=== PATIENT | female | born 1990 | race African-American/Black ===

== ENCOUNTER 2017-02-14 10:45 | Emergency (ER) | payer OTHER ==
[~2017-02-14] VITALS: Ht 170.2 cm; Wt 56.7 kg
[~2017-02-14 10:45] MED LIST: DOCU50CA6 PO; HYDR-971 PO; NAPR500T PO; NAPR500T3 PO
[2017-02-14 11:07] VITALS: BP 113/80
[2017-02-14 11:56] LABS: BILIRUBIN,URINE NEGATIVE (NEG); GLUCOSE,URINE NEGATIVE (NEG); NITRITE,URINE NEGATIVE (NEG); PROTEIN,URINE NEGATIVE (NEG-TRACE)
[2017-02-14 12:03] LABS: BACTERIA,URINE MANY /HPF (0-FEW); RBC,URINE 0 /HPF (0-2); SQUAMOUS EPITHELIAL CELL,UR MANY /LPF
[2017-02-14] MEDS ORDERED: METR500T PO (12:24)
[2017-02-14] MEDS ORDERED: NITR100C62 PO (12:24)
--- NOTE | 2017-02-14 12:26 | PHYS DOC ---
Past Medical History Past Medical History: No Pertinent History Past Surgical History: No Surgical History Alcohol Use: Occasionally Drug Use: None Adult General Chief Complaint Chief Complaint: VAGINAL PROBLEM HPI HPI Patient is a 26 year old presents emergency department stating that she's been having vaginal discharge on and off since August. She states that she started the Depakote shot in August and had some vaginal bleeding for a few months straight. She states that she followed up with her [employer] was placed on control. She states that now she is having irregular menstrual cycles. She states that she has not been sexually active since the of her child last June. She states at that time she had tested positive for chlamydia. She states that they had given her the medications to treat chlamydia although she vomited it up. She states that she did not seek any further treatment after vomiting the medication. Patient states that she is having yellow vaginal discharge is unable to say if it has a odor. She denies any abdominal pain or discomfort she denies any urinary frequency urgency or pain with urination. Review of Systems Review of Systems Constitutional: Denies fever or chills [] Eyes: Denies change in visual acuity, redness, or eye pain [] HENT: Denies nasal congestion or sore throat [] Respiratory: Denies cough or shortness of breath [] Cardiovascular: No additional information not addressed in HPI [] GI: Denies abdominal pain, nausea, vomiting, bloody stools or diarrhea [] : Denies dysuria or hematuria. C/o vaginal discharge Musculoskeletal: Denies back pain or joint pain [] Integument: Denies rash or skin lesions [] Neurologic: Denies headache, focal weakness or sensory changes [] Current Medications Current Medications Current Medications Medications (Trade) Dose Ordered Sig/Jose Start Time Stop Time Status Last Admin Dose Admin Azithromycin (Zithromax) 1,000 mg 1X ONCE 02/14/17 12:15 02/14/17 12:16 UNV Ceftriaxone Sodium (Rocephin Im) 250 mg 1X ONCE 02/14/17 12:15 02/14/17 12:16 UNV Metronidazole (Flagyl) 2,000 mg 1X ONCE 02/14/17 12:15 02/14/17 12:16 UNV Ondansetron HCl (Zofran Odt) 4 mg 1X ONCE 02/14/17 12:15 02/14/17 12:16 UNV Allergies Allergies Allergies Coded Allergies Type Severity Reaction Last Updated Verified No Known Drug Allergies 10/12/13 No Physical Exam Physical Exam Constitutional: Well developed, well nourished, no acute distress, non-toxic appearance. [] HENT: Normocephalic, atraumatic, bilateral external ears normal, oropharynx moist, no oral exudates, nose normal. [] Eyes: PERRLA, EOMI, conjunctiva normal, no discharge. [] Neck: Normal range of motion, no tenderness, supple, no stridor. [] Cardiovascular:Heart rate regular rhythm, no murmur [] Lungs & Thorax: Bilateral breath sounds clear to auscultation [] Abdomen: Bowel sounds normal, soft, no tenderness, no masses, no pulsatile masses. [] Skin: Warm, dry, no erythema, no rash. [] Back: No tenderness Extremities: No tenderness, no cyanosis, no clubbing, ROM intact, no edema. [] Neurologic: Alert and oriented X 3, normal motor function, normal sensory function, no focal deficits noted. [] Psychologic: Affect normal, judgement normal, mood normal. [] Vaginal exam completed speculum exam with white to yellow discharge noted manual exam no CMT no adnexal tenderness noted. Current Patient Data Vital Signs Vital Signs Date Time Temp Pulse Resp B/P Pulse Ox O2 Delivery O2 Flow Rate FiO2 02/14/17 11:07 97.9 60 20 113/80 100 Room Air 97.9 Lab Values Laboratory Tests Test 02/14/17 10:45 02/14/17 11:39 POC Urine HCG, Qualitative Hcg negative (Negative) Urine Collection Type Void Urine Color Yellow Urine Clarity Clear Urine pH 8.0 Urine Specific [place] 1.025 Urine Protein Negativemg/dL (NEG-TRACE) Urine Glucose (UA) Negativemg/dL (NEG) Urine Ketones (Stick) Negativemg/dL (NEG) Urine Blood Negative (NEG) Urine Nitrite Negative (NEG) Urine Bilirubin Negative (NEG) Urine Urobilinogen Dipstick 1.0mg/dL (0.2 mg/dL) Urine Leukocyte Esterase Moderate (NEG) Urine RBC 0/HPF (0-2) Urine WBC 11-20/HPF (0-4) Urine Squamous Epithelial Cells Many/LPF Urine Bacteria Many/HPF (0-FEW) Urine Mucus Marked/LPF Microbiology 02/14/17 Wet Prep - Final, Complete EKG EKG [] Radiology/Procedures Radiology/Procedures [] Course & Med Decision Making Course & Med Decision Making Pertinent Labs and Imaging studies reviewed. (See chart for details) Since the patient states that she had vomited up her medications to treat chlamydia patient will be retreated today for sexually transmitted infections she'll be provided with a Rocephin injection Flagyl and Zithromax. Patient will also be provided with Flagyl at discharge since the wet prep was positive for bacterial vaginosis. Patient was also noted to have urinary tract infection she' ll be placed on Macrobid. Recommended patient to follow up with her primary care physician in the next 5-7 days. Signs symptoms to return back to emergency department been provided. Also recommended patient to drink plenty of fluids such as water and cranberry juice. Avoid cranberry juice cocktail, carbonated beverages, citrus fruits and alcohol sees her considered irritants to the bladder. Patient will be discharged home in stable condition. Signs and symptoms to return back to emergency department was provided. [] Dragon Disclaimer Dragon Disclaimer This electronic medical record was generated, in whole or in part, using a voice recognition dictation system. Departure Departure Impression: Primary Impression: Bacterial vaginosis Additional Impression: Urinary tract infection Disposition: HOME, SELF-CARE Condition: STABLE Referrals: NO PCP (PCP) Patient Instructions: Bacterial Vaginosis, [id number], Urinary Tract Infection, [id number] Additional Instructions: Activity as tolerated. Medication as prescribed. Drink plenty of fluids such as water and cranberry juice. Avoid cranberry juice cocktail carbonate beverages citrus fruits alcohol and caffeine as these are all considered irritants to the bladder. Follow-up to primary care physician next 5-7 days. Return back to emergency prior signs symptoms of become worse. Scripts Metronidazole (Flagyl)500 Mg Tablet1 Tab PO BID #14 TAB Prov:CARO MARIN APRN 02/14/17 Nitrofurantoin Monohyd/M-Cryst (Macrobid 100 Mg Capsule)100 Mg Capsule1 Cap PO BID #14 CAP Prov:CARO MARIN APRN 02/14/17 Problem Qualifiers CARO MARIN APRN Feb 14, 2017 12:26
[2017-02-14] MEDS ORDERED: ONDANSETRON ODT 4 MG TAB.RAPDIS. PO ONE (13:00)
[2017-02-14] MEDS ORDERED: CEFTRIAXONE IM 250 MG VIAL. IM ONE (13:00)
[2017-02-14] MEDS ORDERED: METRONIDAZOLE 500 MG TABLET. PO ONE (13:00)
[2017-02-14] MEDS ORDERED: AZITHROMYCIN 250 MG TABLET. PO ONE (13:00)
== END 2017-02-14 12:57 | disposition home or self-care (01) ==
LOC: ER 10:45
DX: N76.0 Acute vaginitis (principal); N39.0 Urinary tract infection, site not specified
CPT/HCPCS: 81001; 81025; 87491; 87591; 96372; 99284; J0696; Q0111; Q0144; Q0162

== ENCOUNTER 2018-11-08 18:46 | Emergency (ER) | payer OTHER ==
[~2018-11-08] VITALS: Ht 172.7 cm; Wt 56.7 kg
[~2018-11-08 18:46] MED LIST changes: +HYDR-3164 PO; -HYDR-971 PO; +METR500T PO; +NAPR-514 PO; +NAPR-683 PO; -NAPR500T PO; -NAPR500T3 PO; +NITR100C62 PO
[2018-11-08 19:41] VITALS: BP 113/80
[2018-11-08 19:48] LABS: BILIRUBIN,URINE NEGATIVE (NEG); CLARITY,URINE CLEAR; COLOR,URINE YELLOW; NITRITE,URINE NEGATIVE (NEG); PH,URINE 5.5; PROTEIN,URINE NEGATIVE (NEG-TRACE)
[2018-11-08 19:53] LABS: U PREG PATIENT NEGATIVE (NEG)
[2018-11-08 19:56] LABS: BACTERIA,URINE FEW /HPF (0-FEW); RBC,URINE 0 /HPF (0-2); SQUAMOUS EPITHELIAL CELL,UR MOD /LPF
[2018-11-08] MEDS ORDERED: METR-84 PO (19:57)
--- NOTE | 2018-11-08 19:57 | PHYS DOC ---
Past Medical History Past Medical History: No Pertinent History Past Surgical History: No Surgical History Alcohol Use: None Drug Use: None Adult General Chief Complaint Chief Complaint: VAGINAL PROBLEM HPI HPI Patient is a 27 year old female who presents with white vaginal discharge for it before and right after her cycles for the last 2 and half weeks. She denies odor, vaginal itching, vaginal lesions, dysuria. His white in color. Patient states she is not sexually active and has not been sexually active in 2 years. She is no known drug allergies. Review of Systems Review of Systems Constitutional: Denies fever or chills [] Eyes: Denies change in visual acuity, redness, or eye pain [] HENT: Denies nasal congestion or sore throat [] Respiratory: Denies cough or shortness of breath [] Cardiovascular: No additional information not addressed in HPI [] GI: Denies abdominal pain, nausea, vomiting, bloody stools or diarrhea [] : Denies dysuria or hematuria [] Musculoskeletal: Denies back pain or joint pain [] Integument: Denies rash or skin lesions [] Neurologic: Denies headache, focal weakness or sensory changes [] Endocrine: Denies polyuria or polydipsia [] All other systems were reviewed and found to be within normal limits, except as documented in this note. Allergies Allergies Allergies Coded Allergies Type Severity Reaction Last Updated Verified No Known Drug Allergies 10/12/13 No Physical Exam Physical Exam Constitutional: Well developed, well nourished, no acute distress, non-toxic appearance. [] HENT: Normocephalic, atraumatic, bilateral external ears normal, oropharynx moist, no oral exudates, nose normal. [] Eyes: PERRLA, EOMI, conjunctiva normal, no discharge. [] Neck: Normal range of motion, no tenderness, supple, no stridor. [] Cardiovascular:Heart rate regular rhythm, no murmur [] Lungs & Thorax: Bilateral breath sounds clear to auscultation [] Abdomen: Bowel sounds normal, soft, no tenderness, no masses, no pulsatile masses. [] Skin: Warm, dry, no erythema, no rash. [] Back: No tenderness, no CVA tenderness. [] Extremities: No tenderness, no cyanosis, no clubbing, ROM intact, no edema. [] Neurologic: Alert and oriented X 3, normal motor function, normal sensory function, no focal deficits noted. [] Psychologic: Affect normal, judgement normal, mood normal. [] Current Patient Data Vital Signs Vital Signs Date Time Temp Pulse Resp B/P (MAP) Pulse Ox O2 Delivery O2 Flow Rate FiO2 11/08/18 19:41 98.6 90 16 113/80 (91) 100 Room Air 98.6 Lab Values Microbiology 11/08/18 Wet Prep - Final, Complete EKG EKG [] Radiology/Procedures Radiology/Procedures [] Course & Med Decision Making Course & Med Decision Making Patient is a 27 year old female who presents with white vaginal discharge for it before and right after her cycles for the last 2 and half weeks. She denies odor, vaginal itching, vaginal lesions, dysuria. His white in color. Patient states she is not sexually active and has not been sexually active in 2 years. She is no known drug allergies. Alert and oriented. Denies abdominal pain, nausea, vomiting, diarrhea, fever, dysuria. Abdomen is soft and nontender there are no masses. I swabbed the patient's with a wet mount and sent off chlamydia gonorrhea. See pelvic exam. Pelvic Exam: [employer] present Abdomen: Nontender External Genitalia: Normal Skin Speculum: Normal vaginal mucosa, white cervical discharge Bimanual: No adnexal masses or tenderness, No CMT Wet mount shows bacterial vaginosis. She'll be treated with antibiotic for bacterial vaginosis. She'll follow up with her primary care doctor or instrumentation fitter if needed. She refuses any treatment for STDs at this time. Dragon Disclaimer Dragon Disclaimer This electronic medical record was generated, in whole or in part, using a voice recognition dictation system. Departure Departure Impression: Primary Impression: Bacterial vaginosis Disposition: 01 HOME, SELF-CARE Condition: STABLE Referrals: NO PCP (PCP) MARISABEL VEGA Jr, MD Patient Instructions: Bacterial Vaginosis Additional Instructions: Take medications as prescribed. If vaginal discharge continues, I have referred your to a instrumentation fitter. Scripts Metronidazole (METRONIDAZOLE) 500 Mg Tablet 1 TAB PO BID, #14 TAB Prov: CARO GUADARRAMA APRN 11/08/18 CARO GUADARRAMA MAPPER Nov 08, 2018 19:57
== END 2018-11-08 20:11 | disposition home or self-care (01) ==
LOC: ER 18:46
DX: N76.0 Acute vaginitis (principal); B96.89 Other specified bacterial agents as the cause of diseases classified elsewhere
CPT/HCPCS: 81001; 81025; 99283; Q0111

== ENCOUNTER 2019-01-31 12:12 | Emergency (ER) | payer OTHER ==
[~2019-01-31] VITALS: Ht 175.3 cm; Wt 56.7 kg
[~2019-01-31 12:12] MED LIST changes: +METR-34 PO
[2019-01-31 13:00] LABS: BILIRUBIN,URINE NEGATIVE (NEG); CLARITY,URINE CLOUDY; COLOR,URINE YELLOW; NITRITE,URINE NEGATIVE (NEG); PH,URINE 6.5; PROTEIN,URINE NEGATIVE (NEG-TRACE)
[2019-01-31 13:10] LABS: BACTERIA,URINE FEW /HPF (0-FEW); RBC,URINE OCC /HPF (0-2); SQUAMOUS EPITHELIAL CELL,UR MOD /LPF; WBC,URINE OCC /HPF (0-4)
[2019-01-31] MEDS ORDERED: IV NORMAL SALINE 1000ML BAG 1,000 ML IV ONE (13:15)
[2019-01-31] MEDS ORDERED: ACETAMINOPHEN 325 MG TABLET. PO ONE (13:15)
[2019-01-31 13:40] LABS: BASO % 0 % (0-3); EOS # 0.1 x10^3/uL (0.0-0.7); EOS % 2 % (0-3); HEMATOCRIT 38.6 % (36.0-47.0); HEMOGLOBIN 12.5 g/dL (12.0-15.5); LYMPH # 1.3 x10^3/uL (1.0-4.8); LYMPH % 24 % (24-48); MEAN CORPUSCULAR HEMOGLOBIN 26 pg (25-35); MEAN CORPUSCULAR HGB CONC 32 g/dL (31-37); MEAN CORPUSCULAR VOLUME 80 fL (79-100); MONO # 0.4 x10^3/uL (0.0-1.1); MONO % 8 % (0-9); NEUT # 3.7 x10^3uL (1.8-7.7); NEUT % 67 % (31-73); PLATELET COUNT 249 x10^3/uL (140-400); RED CELL DISTRIBUTION WIDTH 15.8 % (11.5-14.5); WHITE BLOOD COUNT 5.5 x10^3/uL (4.0-11.0)
--- NOTE | 2019-01-31 13:43 | PHYS DOC ---
Past Medical History Past Medical History: No Pertinent History (DAVID RAO APRN) Past Surgical History: No Surgical History (DAVID RAO APRN) Alcohol Use: None Drug Use: None (DAVID RAO APRN) Adult General Chief Complaint Chief Complaint: MULTIPLE COMPLAINTS HPI HPI 28-year-old female presents to ER with complaints of diffuse headache which been intermittent for the past week. She denies taking any medications for the pain. She reports she has had intermittent nausea denies any vomiting or diarrhea episodes. She denies any other flu or cold-like illness. She denies fever, urinary symptoms, or dizziness. She denies eye pain/vision changes. She reports LMP was beginning of December and it is uncommon for her to be late. She denies control or condom use and has been sexually active. She denies vaginal d/c or bleeding. She reports she had upper abd pain at work earlier this week when lifting a box at work; otherwise denies any ongoing abd pain. She reports her appetite has been slightly down but she did eat just [employer] to ER. (DAVID RAO APRN) Review of Systems Review of Systems Constitutional: Denies fever or chills [] Eyes: Denies change in visual acuity, redness, or eye pain [] HENT: Denies nasal congestion or sore throat [] Respiratory: Denies cough or shortness of breath [] Cardiovascular: No additional information not addressed in HPI [] GI: Denies vomiting, bloody stools or diarrhea. Reports intermittent nausea. Reports had upper abd tightness at work when lifting a box earlier this week with pain subsiding after lifting. Denies any abd pain/cramping in past couple of days. : Denies dysuria or hematuria [] Musculoskeletal: Denies back pain or joint pain [] Integument: Denies rash, swelling or skin lesions [] Neurologic: Denies focal weakness or sensory changes. Reports diffuse VALDES denying photosensitivity or dizziness Endocrine: Denies polyuria or polydipsia [] All other systems were reviewed and found to be within normal limits, except as documented in this note. (DAVID RAO APRN) Current Medications Current Medications Current Medications Medications (Trade) Dose Ordered Sig/Jose Start Time Stop Time Status Last Admin Dose Admin Acetaminophen (Tylenol) 650 mg 1X ONCE 01/31/19 13:15 01/31/19 13:16 DC Sodium Chloride 1,000 ml @ 1,000 mls/hr 1X ONCE 01/31/19 13:15 01/31/19 14:14 DC 01/31/19 13:33 1,000 MLS/HR (MOOKIE SANTOS MD) Allergies Allergies Allergies Coded Allergies Type Severity Reaction Last Updated Verified No Known Drug Allergies 10/12/13 No (MOOKIE SANTOS MD) Physical Exam Physical Exam Constitutional: Well developed, well nourished, no acute distress, non-toxic appearance. [] HENT: Normocephalic, atraumatic, bilateral ears normal, oropharynx moist, no oral exudates, nose normal. [] Eyes: 3mm PERRLA, EOMI- no pain with eye movement, no nystagmus, conjunctiva normal, no discharge. [] Neck: Normal range of motion, no tenderness- no nuchal rigidity, supple, no stridor. [] Cardiovascular: Heart rate regular rhythm, no murmur [] Lungs & Thorax: Bilateral breath sounds clear to auscultation. Resp. equal/ nonlabored Abdomen: Bowel sounds normal, soft, no tenderness or distention, no masses, no pulsatile masses. [] Skin: Warm, dry, no erythema, no rash. [] Back: No tenderness, no CVA tenderness. [] Extremities: No tenderness, no cyanosis, no clubbing, ROM intact, no edema. [] Neurologic: Alert and oriented X 3, normal motor function, normal sensory function, no focal deficits noted. [] Psychologic: Affect normal, judgement normal, mood normal. [] (REFFITT,DAVID Muro APRN) Current Patient Data Vital Signs Vital Signs Date Time Temp Pulse Resp B/P (MAP) Pulse Ox O2 Delivery O2 Flow Rate FiO2 01/31/19 13:48 88 18 107/64 (78) 100 Room Air 01/31/19 12:40 98.0 98.0 (MOOKIE SANTOS MD) Lab Values Laboratory Tests Test 01/31/19 12:30 01/31/19 12:43 01/31/19 13:30 Urine Collection Type Unknown Urine Color Yellow Urine Clarity Cloudy Urine pH 6.5 Urine Specific [place] 1.025 Urine Protein Negative mg/dL (NEG-TRACE) Urine Glucose (UA) Negative mg/dL (NEG) Urine Ketones (Stick) Negative mg/dL (NEG) Urine Blood Negative (NEG) Urine Nitrite Negative (NEG) Urine Bilirubin Negative (NEG) Urine Urobilinogen Dipstick 2.0 mg/dL (0.2 mg/dL) Urine Leukocyte Esterase Small (NEG) Urine RBC Occ /HPF (0-2) Urine WBC Occ /HPF (0-4) Urine Squamous Epithelial Cells Mod /LPF Urine Bacteria Few /HPF (0-FEW) Urine Mucus Mod /LPF POC Urine HCG, Qualitative Hcg positive (Negative) White Blood Count 5.5 x10^3/uL (4.0-11.0) Red Blood Count 4.80 x10^6/uL (3.50-5.40) Hemoglobin 12.5 g/dL (12.0-15.5) Hematocrit 38.6 % (36.0-47.0) Mean Corpuscular Volume 80 fL (79-100) Mean Corpuscular Hemoglobin 26 pg (25-35) Mean Corpuscular Hemoglobin Concent 32 g/dL (31-37) Red Cell Distribution Width 15.8 % (11.5-14.5) H Platelet Count 249 x10^3/uL (140-400) Neutrophils (%) (Auto) 67 % (31-73) Lymphocytes (%) (Auto) 24 % (24-48) Monocytes (%) (Auto) 8 % (0-9) Eosinophils (%) (Auto) 2 % (0-3) Basophils (%) (Auto) 0 % (0-3) Neutrophils # (Auto) 3.7 x10^3uL (1.8-7.7) Lymphocytes # (Auto) 1.3 x10^3/uL (1.0-4.8) Monocytes # (Auto) 0.4 x10^3/uL (0.0-1.1) Eosinophils # (Auto) 0.1 x10^3/uL (0.0-0.7) Basophils # (Auto) 0.0 x10^3/uL (0.0-0.2) Maternal Serum HCG Beta Subunit 661 mIU/mL (0-5) H Sodium Level 141 mmol/L (136-145) Potassium Level 3.6 mmol/L (3.5-5.1) Chloride Level 104 mmol/L (98-107) Carbon Dioxide Level 26 mmol/L (21-32) Anion Gap 11 (6-14) Blood Urea Nitrogen 8 mg/dL (7-20) Creatinine 0.9 mg/dL (0.6-1.0) Estimated GFR (Cockcroft-Gault) 89.6 BUN/Creatinine Ratio 9 (6-20) Glucose Level 84 mg/dL (70-99) Calcium Level 8.8 mg/dL (8.5-10.1) Total Bilirubin 0.4 mg/dL (0.2-1.0) Aspartate Amino Transferase (AST) 16 U/L (15-37) Alanine Aminotransferase (ALT) 18 U/L (14-59) Alkaline Phosphatase 63 U/L (46-116) Total Protein 7.7 g/dL (6.4-8.2) Albumin 3.9 g/dL (3.4-5.0) Albumin/Globulin Ratio 1.0 (1.0-1.7) Lipase 81 U/L (73-393) Laboratory Tests 01/31/19 13:30 Laboratory Tests 01/31/19 13:30 (MOOKIE SANTOS MD) EKG EKG [] (DAVID RAO APRN) Radiology/Procedures Radiology/Procedures [] (DAVID RAO APRN) Course & Med Decision Making Course & Med Decision Making Pertinent Labs and Imaging studies reviewed. (See chart for details) 1430: Patient was evaluated in the ER for multiple vague complaints. She reports she has had intermittent headache for the past week with intermittent nausea. She denied any vomiting or diarrhea episodes. States her abdominal cramping was upper abdomen and it was while she was lifting a box at work earlier this week. She denied having any abdominal pain or cramping in the past couple of days. Patient had reported her menstrual cycle was late which was not typical for her and she was found to have a positive UCG. With patient's complaints IV was started and she received IV fluids and had ordered a dose of Tylenol. Patient refused Tylenol stating she does not like tylenol as it doesn' t work for her. Patient states following IV fluids her headache had improved. She continued to deny any abdominal cramping or pain. She had denied any vaginal sxs. Labs were obtained which were unremarkable and UA was negative for infection. Serum hCG was obtained with Quant at 661. Test results were discussed with patient along with discharge plan. Will provide [facility] referral info on discharge paperwork. Patient advised on use of Tylenol for pain with . Patient encouraged to increase fluids and eat well-balanced meals. Education provided on signs and symptoms to return to ER for an discharge paperwork was discussed. (DAVID RAO APRN) Course & Med Decision Making Staff Physician Addendum: I was working in the ER during the course of this patient's visit. I was available for consultation as needed, but I was not directly involved in the care of this patient. (MOOKIE SANTOS MD) Dragon Disclaimer Dragon Disclaimer This electronic medical record was generated, in whole or in part, using a voice recognition dictation system. (DAVID RAO APRN) Departure Departure Impression: Primary Impression: Headache Additional Impression: Disposition: 01 HOME, SELF-CARE Condition: STABLE Referrals: NO PCP (PCP) BREONNA DODSON MD Patient Instructions: General Headache Without Cause, Additional Instructions: You had positive test while in the Emergency Department. It is important to increase your fluid intake and eat well balanced meals. You can start [id number] vitamins if not already taking. You should call and schedule an appointment with an [facility] doctor soon as possible for care and reevaluation. Problem Qualifiers DAVID RAO APRN Jan 31, 2019 13:43 MOOKIE SANTOS MD Feb 01, 2019 06:19
[2019-01-31 13:48] VITALS: BP 107/64
[2019-01-31 14:16] LABS: CALCIUM 8.8 mg/dL (8.5-10.1); CREATININE 0.9 mg/dL (0.6-1.0); GFR 89.6; POTASSIUM 3.6 mmol/L (3.5-5.1)
[2019-01-31 14:20] LABS: ALBUMIN 3.9 g/dL (3.4-5.0); TOTAL BILIRUBIN 0.4 mg/dL (0.2-1.0); TOTAL PROTEIN 7.7 g/dL (6.4-8.2)
== END 2019-01-31 15:29 | disposition home or self-care (01) ==
LOC: ER 12:12
DX: Z33.1 Pregnant state, incidental (principal); R51 Headache; R10.10 Upper abdominal pain, unspecified; R07.89 Other chest pain; R42 Dizziness and giddiness
CPT/HCPCS: 36415; 80053; 81001; 81025; 83690; 84702; 85025; 87086; 96360; 99283; J7030

== ENCOUNTER 2020-01-20 13:57 | Emergency (ER) | payer MEDICAID, OTHER ==
[~2020-01-20] VITALS: Ht 170.2 cm; Wt 56.8 kg
[2020-01-20 14:07] VITALS: BP 123/65
--- NOTE | 2020-01-20 14:25 | PHYS DOC ---
Past Medical History Past Medical History: No Pertinent History Past Surgical History: No Surgical History Smoking Status: Current Every Day Smoker Alcohol Use: None Drug Use: None Adult General Chief Complaint Chief Complaint: VAGINAL BLEEDING HPI HPI Patient is a 29 year old F who is 11 weeks with her 5th . She has 3 children at home and reports one prior miscarriage. Her OB is Dr. Wero Power. Pt has seen him for her OB care and had an ultrasound which confirmed an IUP. She is here today because over the last week she has noticed a yellow vaginal discharge as well as some intermittent red spotting on the toilet paper. She denies any pelvic cramping and denies dysuria. Pt is also complaining of a hard tender area on the R side of her labia that she was concerned could be an ingrown hair. Review of Systems Review of Systems Constitutional: Denies fever or chills HENT: Denies nasal congestion or sore throat Respiratory: Denies cough or shortness of breath Cardiovascular: Denies chest pain GI: Denies abdominal pain, nausea, vomiting, bloody stools or diarrhea : Denies dysuria, reports vaginal discharge and spotting. Musculoskeletal: Denies back pain or joint pain Integument: Tender bump on R groin Neurologic: Denies headache, focal weakness or sensory changes All other systems were reviewed and found to be within normal limits, except as documented in this note. Allergies Allergies Allergies Coded Allergies Type Severity Reaction Last Updated Verified No Known Drug Allergies 10/12/13 No Physical Exam Physical Exam Constitutional: Well developed, well nourished, no acute distress, non-toxic appearance. HENT: Normocephalic, atraumatic, bilateral external ears normal, oropharynx moist, no oral exudates, nose normal. Neck: Normal range of motion, no tenderness, supple, no stridor. Cardiovascular:Heart rate regular rhythm, no murmur Lungs & Thorax: Bilateral breath sounds clear to auscultation Abdomen: Bowel sounds normal, soft, no tenderness, no masses, no pulsatile masses. Skin: Warm, dry, no erythema. Pt has small skin colored bump on R labia that appears to be a folliculitis vs small boil. It is firm with no fluctuance. : Vaginal exam: Os is closed, no bleeding or blood/clots noted, yellow discharge noted, no adnexal or cervical motion tenderness. Back: No tenderness, no CVA tenderness. Extremities: No tenderness, no cyanosis, no clubbing, ROM intact, no edema. Neurologic: Alert and oriented X 3, normal motor function, normal sensory function, no focal deficits noted. Psychologic: Affect normal, judgement normal, mood normal. Current Patient Data Vital Signs Vital Signs Date Time Temp Pulse Resp B/P (MAP) Pulse Ox O2 Delivery O2 Flow Rate FiO2 01/20/20 14:07 98.6 67 17 123/65 (84) 97 Room Air 98.6 Lab Values Laboratory Tests Test 01/20/20 14:07 01/20/20 14:11 Urine Collection Type Unknown Urine Color Yellow Urine Clarity Clear Urine pH 6.0 (<5.0-8.0) Urine Specific [place] 1.025 (1.000-1.030) Urine Protein Negative mg/dL (NEG-TRACE) Urine Glucose (UA) Negative mg/dL (NEG) Urine Ketones (Stick) Negative mg/dL (NEG) Urine Blood Negative (NEG) Urine Nitrite Negative (NEG) Urine Bilirubin Negative (NEG) Urine Urobilinogen Dipstick 1.0 mg/dL (0.2 mg/dL) Urine Leukocyte Esterase Negative (NEG) Urine RBC 0 /HPF (0-2) Urine WBC Occ /HPF (0-4) Urine Squamous Epithelial Cells Many /LPF Urine Bacteria Few /HPF (0-FEW) Urine Mucus Marked /LPF POC Urine HCG, Qualitative Hcg positive (Negative) Microbiology 01/20/20 Wet Prep - Final, Complete EKG EKG [] Radiology/Procedures Radiology/Procedures [] Course & Med Decision Making Course & Med Decision Making Pt with small boil on R labia that is indurated and does not currently need I&D. She has small amt of bacteria in urine as well so will cover with Keflex. Pt's wet mount and GC/Chlam pending. She denies risk of STD. There is no blood on exam, pt is pain free and had recent US, so will treat with keflex, warm compresses to boil and have her f/u with OB. Pt to return with any worsening symptoms. Dragon Disclaimer Dragon Disclaimer This electronic medical record was generated, in whole or in part, using a voice recognition dictation system. Departure Departure Impression: Primary Impression: Folliculitis Additional Impression: Vaginitis Disposition: HOME, SELF-CARE Condition: STABLE Referrals: NO PCP (PCP) Patient Instructions: Folliculitis, Vaginitis, [id number] Additional Instructions: With reports of some vaginal spotting and discharge in early , we recommend pelvic rest at this time. Call your staff certified nurse midwife to schedule follow up. Scripts Cephalexin (KEFLEX) 500 Mg Capsule 1 CAP PO TID for 7 Days, #21 CAP 0 Refills Prov: DARION HUYNH 01/20/20 Problem Qualifiers DARION HUYNH Jan 20, 2020 14:25
[2020-01-20 14:29] LABS: BILIRUBIN,URINE NEGATIVE (NEG); CLARITY,URINE CLEAR; COLOR,URINE YELLOW; NITRITE,URINE NEGATIVE (NEG); PROTEIN,URINE NEGATIVE (NEG-TRACE)
[2020-01-20 14:41] LABS: BACTERIA,URINE FEW /HPF (0-FEW); RBC,URINE 0 /HPF (0-2); SQUAMOUS EPITHELIAL CELL,UR MANY /LPF; WBC,URINE OCC /HPF (0-4)
[2020-01-20] MEDS ORDERED: CEPH-264 PO (15:18)
[2020-01-21 17:09] LABS: GC PROBE Negative (Negative)
== END 2020-01-20 15:29 | disposition home or self-care (01) ==
LOC: ER 13:57
DX: O23.591 Infection of other part of genital tract in pregnancy, first trimester (principal); Z3A.11 11 weeks gestation of pregnancy; L73.9 Follicular disorder, unspecified; O99.331 Smoking (tobacco) complicating pregnancy, first trimester
CPT/HCPCS: 81001; 81025; 87491; 87591; 99283; Q0111

== ENCOUNTER 2021-02-11 15:59 | Emergency (ER) | payer MEDICAID ==
[~2021-02-11] VITALS: Ht 167.6 cm; Wt 60.0 kg
[~2021-02-11 15:59] MED LIST changes: +CEPH-264 PO
[2021-02-11] MEDS ORDERED: cefTRIAXone IM 500 MG VIAL. IM ONE (18:30)
[2021-02-11 18:32] LABS: BILIRUBIN,URINE NEGATIVE (NEG); CLARITY,URINE CLEAR; COLOR,URINE YELLOW; NITRITE,URINE NEGATIVE (NEG); PH,URINE 8.5 (<5.0-8.0); PROTEIN,URINE NEGATIVE (NEG-TRACE)
[2021-02-11 18:47] LABS: BACTERIA,URINE FEW /HPF (0-FEW); RBC,URINE 0 /HPF (0-2); WBC,URINE 0 /HPF (0-4)
[2021-02-11 19:00] VITALS: BP 120/78
--- NOTE | 2021-02-11 19:08 | ED.ADGEN ---
Past Medical History Past Medical History: Other Additional Past Medical Histor: BACTERIAL VAGINOSIS Past Surgical History: No Surgical History Smoking Status: Former Smoker Alcohol Use: None Drug Use: None General Adult EDM: Chief Complaint: VAGINAL PROBLEM HPI: HPI: Patient is a 30 year old AA female who presents emergency department with complaints of abnormal yellow vaginal discharge for several weeks. Patient reports that her son's father recently revealed that he cheated on her. She states that her vaginal discharge does not smell bad but it does not smell like it normally does. She denies any abdominal pain, pelvic pain, dysuria, hematuria, increased urinary frequency, back pain, or difficulty voiding. Patient denies any fever, cough, chest pain, palpitations, back pain, body a ches, fatigue, or rash. She currently denies any pain. Patient reports her last menstrual cycle was a few weeks ago. She denies any concerns of . Review of Systems: Review of Systems: Complete ROS is negative unless otherwise noted in HPI. Current Medications: Current Medications Medications (Trade) Dose Ordered Sig/Jose Start Time Stop Time Status Last Admin Dose Admin Ceftriaxone Sodium (Rocephin Im) 500 mg 1X ONCE 02/11/21 18:30 02/11/21 18:31 DC 02/11/21 18:30 500 MG Allergies: Allergies: Allergies Coded Allergies Type Severity Reaction Last Updated Verified No Known Drug Allergies 10/12/13 No Physical Exam: PE: See Above Constitutional: Well developed, well nourished, no acute distress, non-toxic appearance. [] HENT: Normocephalic, atraumatic, bilateral external ears normal, nose normal. [] Eyes: PERRLA, EOMI, conjunctiva normal, no discharge. [] Neck: Normal range of motion, no stridor. [] Cardiovascular:Heart rate regular rhythm Lungs & Thorax: Respirations even and unlabored, no retractions, no respiratory distress Abdomen: soft, no tenderness, no suprapubic tenderness to palpation, no palpable mass Back: Nontender, no CVA tenderness Skin: Warm, dry, no erythema, no rash. [] Extremities: No cyanosis, ROM intact, no edema. [] Neurologic: Alert and oriented X 3, normal motor, normal sensory, no focal deficits noted. [] Psychologic: Affect normal, judgement normal, mood normal. [] Current Patient Data: Labs: Laboratory Tests Test 02/11/21 18:15 02/11/21 18:23 02/11/21 19:05 Urine Collection Type Void Urine Color Yellow Urine Clarity Clear Urine pH 8.5 (<5.0-8.0) Urine Specific [place] 1.020 (1.000-1.030) Urine Protein Negative mg/dL (NEG-TRACE) Urine Glucose (UA) Negative mg/dL (NEG) Urine Ketones (Stick) Negative mg/dL (NEG) Urine Blood Negative (NEG) Urine Nitrite Negative (NEG) Urine Bilirubin Negative (NEG) Urine Urobilinogen Dipstick 1.0 mg/dL (0.2 mg/dL) Urine Leukocyte Esterase Negative (NEG) Urine RBC 0 /HPF (0-2) Urine WBC 0 /HPF (0-4) Urine Squamous Epithelial Cells Many /LPF Urine Bacteria Few /HPF (0-FEW) Urine Mucus Slight /LPF POC Urine HCG, Qualitative Borderline hcg level Serum Test, Qualitative Positive (NEG) Microbiology 02/11/21 Wet Prep - Final, Complete Vital Signs: Vital Signs Date Time Temp Pulse Resp B/P (MAP) Pulse Ox O2 Delivery O2 Flow Rate FiO2 02/11/21 19:00 81 16 120/78 (92) 100 Room Air 02/11/21 17:00 98.2 98.2 EKG: EKG: [] Heart Score: C/O Chest Pain: No Risk Factors: Risk Factors: DM, Current or recent (<one month) smoker, HTN, HLP, family history of CAD, obesity. Risk Scores: Score 0 - 3: 2.5% MACE over next 6 weeks - Discharge Home Score 4 - 6: 20.3% MACE over next 6 weeks - Admit for Clinical Observation Score 7 - 10: 72.7% MACE over next 6 weeks - Early Invasive Strategies Radiology/Procedures: Radiology/Procedures: [] Course & Med Decision Making: Course & Med Decision Making Pertinent Labs and Imaging studies reviewed. (See chart for details) Patient is a 30-year-old female who presented to the emergency room for evaluation of irregular vaginal discharge. Patient denied any pelvic pain or abdominal pain. She self swabbed herself for a wet mount and gonorrhea and chlamydia Testing. Patient was treated prophylactically with 500 mg of IM Rocephin while in the emergency room. Her urine test was inconclusive therefore a qualitative blood hCG was ordered. At first lab reported that the blood hCG was negative however then I received a call from the lab stating that they had recorded the results incorrectly and that the patient is indeed . Advised the patient that she is . I encouraged her to follow-up with Dr. Mills for further treatment of abnormal vaginal discharge and for her . I instructed her patient was instructed to avoid having intercourse until the results of gonorrhea and chlamydia testing are available, patient was notified that these results would not be available for 48 hours. If one or both of these tests is positive, she will require additional treatment potentially. Patient's wet mount was concerning for bacterial vaginosis. A prescription was written for Flagyl 500 mg p.o. twice daily x7 days. Patient verbalized an understanding of home care, medications, follow-up, and return to ED instructions and was in agreement with the plan of care. Dragon Disclaimer: Dragon Disclaimer: This electronic medical record was generated, in whole or in part, using a voice recognition dictation system. Departure Departure Impression: Primary Impression: Bacterial vaginosis Additional Impressions: Contact with and (suspected) exposure to infections with a predominantly sexual mode of transmission Disposition: HOME / SELF CARE / HOMELESS Condition: STABLE Referrals: MARISABEL MILLS Jr, MD Patient Instructions: ABCs of , Bacterial Vaginosis, [id number], Sexually Transmitted Disease, [id number] Additional Instructions: Fill the prescription and take as directed. Recommend that you go to your local health department for comprehensive sexually transmitted disease testing. You have been treated for a suspected gonorrhea and chlamydia. Avoid having intercourse until the results of gonorrhea and chlamydia testing are available, these results will not be available for 48 hours. If one or both of these tests is positive, you need to refrain from intercourse for approximately 1 week following the treatment of any current partners. Follow-up with Dr. Mills next week, return to ER symptoms worsen. Scripts Metronidazole (METRONIDAZOLE) 500 Mg Tablet 1 TAB PO BID for 7 Days, #14 TAB 0 Refills Prov: EDILBERTO SARABIA APRN 02/11/21 Attending Signature Attending Signature I have participated in the care of this patient and I have reviewed and agree with all pertinent clinical information above including history, exam, and rec ommendations. Problem Qualifiers EDILBERTO SARABIA [place] Feb 11, 2021 19:08 DIOGO RAMIREZ MD Feb 13, 2021 18:07
[2021-02-11] MEDS ORDERED: METR-34 PO (19:30)
[2021-02-11] MEDS ORDERED: DOXY100T PO (19:30)
[2021-02-11 19:37] LABS: PREG TEST PT QUAL POSITIVE (NEG)
== END 2021-02-11 19:50 | disposition home or self-care (01) ==
LOC: ER 15:59
DX: O23.591 Infection of other part of genital tract in pregnancy, first trimester (principal); N89.8 Other specified noninflammatory disorders of vagina; Z87.891 Personal history of nicotine dependence
CPT/HCPCS: 81001; 81025; 84703; 87491; 87591; 96372; 99285; J0696; Q0111

== ENCOUNTER 2021-05-25 15:20 | Emergency (ER) | payer MEDICAID ==
[~2021-05-25 15:20] MED LIST changes: +DOXY100T PO
== END 2021-05-25 17:51 | disposition left against medical advice (07) ==
LOC: ER 15:20
DX: O46.91 Antepartum hemorrhage, unspecified, first trimester (principal); Z3A.00 Weeks of gestation of pregnancy not specified; Z53.21 Procedure and treatment not carried out due to patient leaving prior to being seen by health care provider

== ENCOUNTER 2021-05-25 21:27 | Emergency (ER) | payer MEDICAID ==
[~2021-05-25] VITALS: Ht 165.1 cm; Wt 59.0 kg
[2021-05-25 21:44] VITALS: BP 122/74
== END 2021-05-26 02:50 | disposition left against medical advice (07) ==
LOC: ER 21:27
DX: N93.9 Abnormal uterine and vaginal bleeding, unspecified (principal); R10.30 Lower abdominal pain, unspecified; Z53.21 Procedure and treatment not carried out due to patient leaving prior to being seen by health care provider